=== PATIENT | male | born 1955 | race Caucasian/White ===

== ENCOUNTER 2019-08-04 13:04 | Observation (INO) | payer MEDICARE ==
[~2019-08-04] VITALS: Ht 188 cm; Wt 152.8 kg
[~2019-08-04 13:04] MED LIST: ARMO250T2 PO; ASPI-650 PO; ATEN-103 PO; ATEN25TA PO; ATENOLOL PO; ATOR20TA PO; ATOR20TA37 PO; AZAT50TA9 PO; BUDE3CAP2 PO; CLIN300C8 PO; CODE1CAP7 PO; DIAZ5TAB4 PO; DILT240C2 PO; DILT240C9 PO; DULO30CA2 PO; DUTA1CPM PO; FURO20TA3 PO; FURO40TA6 PO; GABA600T7 PO; GABAPENTIN PO; HYDR-36 PO; HYDR-826 PO; IRBE150T25 PO; LEVE500T22 PO; LEVE500T53 PO; MESA10003 PR; MESA400C PO; MODA200T2 PO; MORP-29 PO; MORPHINE PO; NORT50CA52 PO; OXYC10TA6 PO; OXYC15TA PO; OXYC15TA60 PO; OXYC1TAB7 PO; OXYGEN INH; PANT40TA3 PO; PANT40TA5 PO; PARO40TA3 PO; PARO40TA61 PO; POTA10TA11 PO; POTA20TA14 PO; PRED20TA PO; TAMS-11 PO; TAMS0.4C2 PO; TEMA30CA PO; TRIA1CAP3 PO; TRIA1TAB PO; ZOLP10TA PO
--- NOTE | 2019-08-04 13:26 | NUR ---
debra from [facility] where pt received treatment for ulcerative colitis. pt had syncopal event during infusion of iv remicade. pt received 800mg of 1600mg dose. pt was found to be hypotensive with sbp 60s-70s. pt was given 25mg benadryl by staff at [facility] for suspected allergic reaction prior to calling ems. pt has received this dose of this medication before with no reaction. upon arrival of ems to facility, pt stated he was dizzy and nauseated. 4mg zofran po was administered by ems and ivf started. per ems, pt hs hx of seizures and is compliant wtih keppra. no seizure activity noted during event. pt connected to all monitors and remained hypotensive 82/55 and iv ns continued with verbal order from Dr. Robles. o2 sat 81% on ra. 2l nc placed wtih recovery to >94%. 24 g iv established in left wrist at [facility] and 20g iv established by ems seating captain. Dr. Robles to bs for assessment and orders received. crime laboratory analyst at bs to draw at this time. per crime laboratory analyst, pt is difficult stik and she will be calling another tech to complete draw.
[2019-08-04] MEDS ORDERED: SODIUM CHLORIDE 0.9% 1,000ML IVBOLUS ONE (13:30)
[2019-08-04] MEDS ORDERED: atorvastatin (13:44)
--- NOTE | 2019-08-04 13:45 | NUR ---
ivf infusing. pt remains hypotensive. Dr. Robles aware. plan to reassess after ivf complete.
[2019-08-04 13:56] LABS: MEAN CORPUSCULAR HEMOGLOBIN 31.3 pg (27.5-34.5); MEAN CORPUSCULAR HGB CONC 32.5 g/dL (33.2-36.2); MEAN CORPUSCULAR VOLUME 96.2 fL (81-97); MEAN PLATELET VOLUME 8.2 fL (7.4-10.4); PLATELET COUNT 333 x10^3/uL (130-400); RED BLOOD COUNT 5.07 x10^6/uL (4.38-5.82); RED CELL DISTRIBUTION WIDTH 14.7 % (9.4-14.8)
[2019-08-04] MEDS ORDERED: SODIUM CHLORIDE 0.9%, 500ML IVBOLUS ONE (14:00)
[2019-08-04] MEDS ORDERED: EPINEPHRINE 1 MG/ML, 1ML SQ ONE (14:00)
--- NOTE | 2019-08-04 14:02 | NUR ---
PT REMAINS HYPOTENSIVE AFTER 1L INFUSION. DR. CHRIS AWARE. NEW ORDERS RECEIVED.
[2019-08-04] MEDS ORDERED: EPINEPHRINE 1 MG/ML, 1ML ONE (14:04)
--- NOTE | 2019-08-04 14:08 | NUR ---
XR TO [facility].
[2019-08-04 14:09] LABS: ANION GAP 11 mmol/L (5-15); CALCIUM 8.2 mg/dL (8.5-10.1); CHLORIDE 110 mmol/L (98-107)
[2019-08-04 14:12] LABS: TROPONIN I 0.026 ng/mL (0.000-0.045)
--- NOTE | 2019-08-04 14:25 | NUR ---
PT RESTING COMFORTABLY IN ROOM. 500ML BOLUS STARTED AND PT MEDICATED WITH EPINEPHRINE PER DEC. BP 109/77 AT THIS TIME. NO NEEDS EXPRESSED.
--- NOTE | 2019-08-04 14:47 | NUR ---
PT RESTIGN IN ROOM. WARM BLANKETS PROVIED FOR COMFORT. VSS. BP NOW 118/72. ALL ORDERED BOLUSES COMPLETED. NO NEEDS EXPRESSED.
[2019-08-04 15:05] LABS: MD YES
[2019-08-04 15:06] LABS: BAND#(MANUAL) 2.24 x10^3/uL; BANDS%(MANUAL) 10 % (0-7); LYMPH#(MANUAL) 1.34 x10^3/uL (1-3.4); LYMPHS% (MANUAL) 6 % (22-44); METAMYELOCYTES# (MANUAL) 0.22 x10^3/uL (0-0); METAMYELOCYTES% (MANUAL) 1 % (0-1); MONOS#(MANUAL) 0.22 x10^3/uL (0.3-2.7); MONOS% (MANUAL) 1 % (2-9); MYELOCYTES# (MANUAL) 0.22 x10^3/uL (0-0); MYELOCYTES% (MANUAL) 1 % (0-0); SEG#(MANUAL) 18.14 x10^3/uL (1.8-6.8); SEGS% (MANUAL) 81 % (42-75)
[2019-08-04 15:07] LABS: <PLATELET ESTIMATE> ADEQUATE; <PLT MORPHOLOGY> NORMAL PLT MORPH; <RBC MORPHOLOGY> NORMAL; TOXIC GRAN 1+
--- NOTE | 2019-08-04 15:17 | NUR ---
PT RESTING IN ROOM WITH EYES CLOSED. VSS. BP NOW 121/78. ALL RESULTS BACK AT THIS TIME. CHART UP FOR RECHECK.
--- NOTE | 2019-08-04 15:57 | NUR ---
PT RESTING IN ROOM WTIH EYES CLOSED AND LIGHTS DIMMED. VS REMAIN STABLE. DR. CHRIS BACK TO REASSESS. PLAN TO OBSERVE AT LEAST UNTIL 1700.
--- NOTE | 2019-08-04 17:15 | NUR ---
pt resting in room. vss. ambulation attempted with this rn adn tech. upon sitting eob, pts hr up to 110s and bp down to 107/78. pt tachyneic and unable to stand at this time.
--- NOTE | 2019-08-04 17:41 | NUR ---
per dr. inman, repeat ekg and plan to admit. pt resting in room. vss.
[2019-08-04] MEDS ORDERED: NS + 20MEQ KCL 1,000 ML IV SCH (19:33)
[2019-08-04] MEDS ORDERED: ONDANSETRON ODT 4 MG PO PRN (20:00)
[2019-08-04] MEDS ORDERED: BISACODYL 10 MG SUPP PR PRN (20:00)
[2019-08-04] MEDS ORDERED: ACETAMINOPHEN 325 MG TABLET PO PRN (20:00)
[2019-08-04] MEDS ORDERED: LIDODERM 5% PATCH TD PRN (20:00)
--- NOTE | 2019-08-04 20:15 | NUR ---
pt resting in room. vss. report to nilesh song. pt ready for transport.
[2019-08-04] MEDS: ASA/APAP/ CAFFEINE TABLET PO PRN (20:51)
[2019-08-04] MEDS: LEVETIRACETAM 500 MG TABLET PO SCH (20:52)
[2019-08-04] MEDS: HEPARIN 5,000 UNITS/ML, 1ML SQ SCH (20:52)
[2019-08-04] MEDS: GABAPENTIN 300 MG CAPSULE PO SCH (20:52)
[2019-08-04 20:56] VITALS: BP 159/100
[2019-08-04 21:00] LABS: TROPONIN I 0.053 ng/mL (0.000-0.045)
[2019-08-04] MEDS: INSULIN LISPRO 100 UNITS/ML, PEN SQ-INSULIN SCH (21:00)
[2019-08-04] MEDS: LIDODERM REMOVE PATCH NOTE XX SCH (21:00)
[2019-08-04] MEDS: OXYMETAZOLINE NASAL SPRAY 0.05%,30ML NAS SCH (21:00)
[2019-08-04] MEDS: OXYcodone IR 5MG TABLET PO SCH (21:08)
[2019-08-04] MEDS: ZOLPIDEM 10MG TABLET PO SCH (21:09)
[2019-08-05 00:45] VITALS: BP 118/64
[2019-08-05 02:07] LABS: ANION GAP 5 mmol/L (5-15); CALCIUM 8.5 mg/dL (8.5-10.1); CHLORIDE 112 mmol/L (98-107); CREATININE 0.98 mg/dL (0.7-1.3)
[2019-08-05 02:11] LABS: TROPONIN I 0.038 ng/mL (0.000-0.045)
[2019-08-05 02:20] LABS: BASOPHILS # (AUTO) 0.03 x10^3/uL (0-0.1); BASOPHILS % (AUTO) 0 % (0-1); EOSINOPHILS % (AUTO) 1 % (1-7); LYMPHOCYTES # (AUTO) 1.78 x10^3/uL (1-3.4); LYMPHOCYTES % (AUTO) 10 % (22-44); MD NO; MEAN CORPUSCULAR HEMOGLOBIN 31.4 pg (27.5-34.5); MEAN CORPUSCULAR HGB CONC 32.4 g/dL (33.2-36.2); MEAN PLATELET VOLUME 8.6 fL (7.4-10.4); MONOCYTES # (AUTO) 0.92 x10^3/uL (0.2-0.8); MONOCYTES % (AUTO) 5 % (2-9); NEUTROPHILS # (AUTO) 14.43 x10^3/uL (1.8-6.8); NEUTROPHILS % (AUTO) 84 % (42-75); PLATELET COUNT 365 x10^3/uL (130-400); RED BLOOD COUNT 4.67 x10^6/uL (4.38-5.82); RED CELL DISTRIBUTION WIDTH 14.7 % (9.4-14.8)
[2019-08-05] MEDS: OXYcodone IR 5MG TABLET PO SCH ×4 (02:22→20:55)
[2019-08-05 02:38] LABS: HEMOGLOBIN A1C 6.5 % (4.2-6.3)
[2019-08-05] MEDS: ASA/APAP/ CAFFEINE TABLET PO PRN ×3 (05:54→20:53)
[2019-08-05] MEDS: INSULIN LISPRO 100 UNITS/ML, PEN SQ-INSULIN SCH ×4 (07:00→21:00)
[2019-08-05 08:37] LABS: CLOSTRIDIUM DIFFICILE ANTIGEN NEGATIVE; CLOSTRIDIUM DIFFICILE TOXIN NEGATIVE (Negative); CRYPTOSPORIDIUM ANTIGEN Negative (Negative)
[2019-08-05] MEDS: GABAPENTIN 300 MG CAPSULE PO SCH ×3 (08:53→20:54)
[2019-08-05] MEDS: TAMSULOSIN 0.4 MG CAP.ER.24H PO SCH (08:53)
[2019-08-05] MEDS: LEVETIRACETAM 500 MG TABLET PO SCH ×2 (08:53→20:55)
[2019-08-05] MEDS: HEPARIN 5,000 UNITS/ML, 1ML SQ SCH ×2 (08:54→16:30)
[2019-08-05 10:30] VITALS: BP 131/93
[2019-08-05 13:08] LABS: MICROSCOPIC NOT IND
[2019-08-05 13:13] LABS: CULTURE INDICATED? NO
[2019-08-05 13:25] VITALS: BP 114/73
[2019-08-05] MEDS: OXYMETAZOLINE NASAL SPRAY 0.05%,30ML NAS SCH ×2 (14:21→20:55)
[2019-08-05 19:26] VITALS: BP_SYST 132; BP_SYST 144; BP_DIAS 84; BP_DIAS 98
[2019-08-05] MEDS: ZOLPIDEM 10MG TABLET PO SCH (20:53)
[2019-08-05] MEDS: NS + 20MEQ KCL 1,000 ML IV SCH (20:55)
[2019-08-05] MEDS: LIDODERM REMOVE PATCH NOTE XX SCH (21:00)
[2019-08-06] MEDS: HEPARIN 5,000 UNITS/ML, 1ML SQ SCH ×3 (00:43→16:34)
[2019-08-06 01:40] VITALS: BP 126/64
[2019-08-06] MEDS: OXYcodone IR 5MG TABLET PO SCH ×4 (03:19→19:22)
[2019-08-06] MEDS: INSULIN LISPRO 100 UNITS/ML, PEN SQ-INSULIN SCH ×3 (07:00→16:00)
[2019-08-06] MEDS: NS + 20MEQ KCL 1,000 ML IV SCH (08:00)
[2019-08-06] MEDS: OXYMETAZOLINE NASAL SPRAY 0.05%,30ML NAS SCH (08:04)
[2019-08-06 08:26] VITALS: BP 136/90
[2019-08-06] MEDS: TAMSULOSIN 0.4 MG CAP.ER.24H PO SCH (09:05)
[2019-08-06] MEDS: GABAPENTIN 300 MG CAPSULE PO SCH ×2 (09:06→16:34)
[2019-08-06] MEDS: LEVETIRACETAM 500 MG TABLET PO SCH (09:06)
[2019-08-06] MEDS ORDERED: FLU VACC QS2019-20 36MOS UP/PF 0.5 ML IM-VACC ONE (12:30)
[2019-08-06] MEDS ORDERED: FLU VAC QS 19-20(4YR UP)CEL/PF 0.5 ML IM-VACC ONE (12:30)
[2019-08-06 13:24] VITALS: BP 133/85
[2019-08-06] MEDS: ASA/APAP/ CAFFEINE TABLET PO PRN (14:15)
[2019-08-06 19:11] VITALS: BP 131/90
== END 2019-08-06 20:04 | disposition home or self-care (01) ==
LOC: ED 15:03 → EDIP 18:02 → INTOOBSV 18:02 → 4WST 20:38
PROVIDERS: ADMIT Family Medicine; ATTEND Family Medicine
DX: G90.9 Disorder of the autonomic nervous system, unspecified (principal); E87.6 Hypokalemia; K51.90 Ulcerative colitis, unspecified, without complications; N17.0 Acute kidney failure with tubular necrosis; F11.20 Opioid dependence, uncomplicated; I50.32 Chronic diastolic (congestive) heart failure; I11.0 Hypertensive heart disease with heart failure; D89.9 Disorder involving the immune mechanism, unspecified; F17.210 Nicotine dependence, cigarettes, uncomplicated; G40.909 Epilepsy, unspecified, not intractable, without status epilepticus; G89.4 Chronic pain syndrome; I95.1 Orthostatic hypotension; N40.0 Benign prostatic hyperplasia without lower urinary tract symptoms; R32 Unspecified urinary incontinence; G62.9 Polyneuropathy, unspecified; R73.9 Hyperglycemia, unspecified; Z79.899 Other long term (current) drug therapy; Z23 Encounter for immunization
CPT/HCPCS: 36415; 71045; 80048; 81003; 82962; 83036; 83735; 84443; 84484; 85025; 87046; 87324; 87328; 87329; 87427; 89055; 90471; 90686; 93005; 93306; 93880; 96365; 96366; 96372; 97162; 97165; 99285; G0378; J0171; J1644; J3480; J7030; J7040; J1815

== ENCOUNTER 2019-08-16 19:24 | Emergency (ER) | payer MEDICARE ==
[~2019-08-16] VITALS: Ht 188 cm; Wt 158.0 kg
[~2019-08-16 19:24] MED LIST changes: +atorvastatin
--- NOTE | 2019-08-16 20:18 | NUR ---
PT REFUSING TO PROVIDE URINE SAMPLE AT THIS TIME.
[2019-08-16 21:02] VITALS: BP 122/92
== END 2019-08-16 21:50 | disposition home or self-care (01) ==
LOC: ED 20:55
DX: I80.8 Phlebitis and thrombophlebitis of other sites (principal); I11.0 Hypertensive heart disease with heart failure; I50.9 Heart failure, unspecified; Z87.891 Personal history of nicotine dependence
CPT/HCPCS: 99284